=== PATIENT | female | born 1970 | race Caucasian/White ===

== ENCOUNTER 2017-09-19 15:21 | Emergency (ER) | payer OTHER ==
--- NOTE | 2017-09-19 15:31 | ER Report ---
History and Physical Time Seen By MD: 15:31 HPI/ROS CHIEF COMPLAINT: Traumatic fall HISTORY OF PRESENT ILLNESS: This is a 47-year-old female who presents to the emergency department, by POV for age mannitol downstairs patient states that about one hour prior to arrival she was moving into a new house spelled down some stairs approximately 5 but she is unsure. Patient's unsure if she had a positive LOC. Patient does have some C-spine tenderness. Patient is complaining of left arm, left lower leg right lower leg pain. Patient denies shortness of breath or chest pain. Denies abdominal pain. Denies loss of bowel or bladder. Patient has multiple abrasions to the lower extremities, no obvious deformities noted at this time. No recent illnesses or fevers or chills. REVIEW OF SYSTEMS: Constitutional: No fever, no chills. Eyes: No discharge. ENT: No sore throat. Cardiovascular: No chest pain, no palpitations. Respiratory: No cough, no shortness of breath. Gastrointestinal: No abdominal pain, no vomiting. Genitourinary: No hematuria. Musculoskeletal: As above. Skin: As above. Neurological: As above. Allergies: Coded Allergies: Sulfa (Sulfonamide Antibiotics) (Verified Allergy, Unknown, 09/19/17) Home Meds Active Scripts Cyclobenzaprine Hcl (CYCLOBENZAPRINE HCL) 10 Mg Tablet, 5-10 MG PO TID Y for MUSCLE SPASMS, #9 TAB 0 Refills Prov:SINDY FLORES Nayely RETAIL ASSISTANT STORE MANAGER-BC 09/19/17 Reported Medications Trazodone Hcl (TRAZODONE HCL) 100 Mg Tablet, 50 MG PO TID, TAB 09/19/17 Lamotrigine (LAMOTRIGINE) 25 Mg Tab.er.24, 25 MG PO 09/19/17 Prazosin Hcl (PRAZOSIN HCL) 2 Mg Capsule, 2 MG PO, CAPSULE 09/19/17 Fluoxetine Hcl (PROZAC) 20 Mg Capsule, 20 MG PO QDAY, CAPSULE 09/19/17 Montelukast Sodium (SINGULAIR) 10 Mg Tablet, 1 TAB PO QDAY, TAB 09/19/17 Omeprazole (OMEPRAZOLE) 20 Mg Capsule.dr, 1 CAP PO BID, CAP 09/19/17 Past Medical/Surgical History The patient has a past medical and surgical history of pseudotumor cerebri, reflex sympathetic dystrophy, gastric sleeve, tubal ligation. Reviewed Nurses Notes: Yes Constitutional Vital Sign - Last 24 Hours 09/19/17 09/19/17 09/19/17 09/19/17 15:32 15:36 15:36 15:51 Temp 99.0 Pulse 80 79 76 Resp 18 B/P (MAP) 196/122 (146) 196/122 Pulse Ox 97 97 99 O2 Delivery Room Air 09/19/17 09/19/17 09/19/17 09/19/17 16:06 16:21 16:36 16:51 Pulse 74 72 80 68 Pulse Ox 100 98 94 99 09/19/17 09/19/17 09/19/17 09/19/17 16:58 17:00 17:06 17:15 Pulse 63 B/P (MAP) 123/91 (102) 136/84 (101) ???/??? (4765) Pulse Ox 100 09/19/17 09/19/17 09/19/17 09/19/17 17:20 17:35 17:45 17:50 Pulse ??? 59 67 B/P (MAP) ???/??? (1473) Pulse Ox 96 98 09/19/17 09/19/17 09/19/17 09/19/17 18:00 18:05 18:15 18:20 Pulse 70 64 B/P (MAP) ???/??? (1665) ???/??? (1665) Pulse Ox 97 94 09/19/17 09/19/17 09/19/17 09/19/17 18:24 18:35 18:45 18:50 Pulse 65 ??? B/P (MAP) 142/74 (96) ???/??? (1665) Pulse Ox 95 09/19/17 09/19/17 09/19/17 09/19/17 19:00 19:05 19:15 19:20 Pulse 62 62 B/P (MAP) ???/??? (1665) ???/??? (1665) Pulse Ox 93 96 09/19/17 09/19/17 09/19/17 09/19/17 19:35 19:50 19:52 19:57 Pulse 64 59 B/P (MAP) 144/83 (103) 144/82 (102) Pulse Ox 95 94 09/19/17 09/19/17 09/19/17 09/19/17 20:00 20:05 20:15 20:20 Pulse ? B/P (MAP) 145/74 (97) ???/??? (1665) Intake and Output 09/19/17 09/19/17 09/20/17 14:59 22:59 06:59 Intake Total 900 ml Balance 900 ml Physical Exam General Appearance: The patient is alert, has no immediate need for airway protection and no signs of toxicity, very anxious, moaning in pain. Eyes: Pupils equal and round no pallor or injection. ENT, Mouth: Mucous membranes are moist. Respiratory: There are no retractions, lungs are clear to auscultation. Cardiovascular: Regular rate and rhythm, no murmurs, clicks or rubs. Gastrointestinal: Abdomen is soft and non tender, no masses, bowel sounds normal. Neurological: Alert and oriented 4. Moving all extremities. Following all commands. No focal neuro deficits. Skin: Warm and dry, no rashes. Abrasions noted to the left knee, left anterior lower leg, right knee and right anterior lower leg. Contusion to the left elbow. Musculoskeletal: Neck is supple, mild tenderness to the cervical spine. No crepitus or obvious deformities. Extremities pain to the left shoulder, humerus, elbow and forearm, no deformities or crepitus identified. Pain to the left tib-fib with abrasions noted. Pain to the right knee, right tib-fib and right ankle abrasions to the right knee right tib-fib. DIFFERENTIAL DIAGNOSIS: After history and physical exam differential diagnosis was considered for multiple fractures, pelvic fracture, left humerus fracture, multiple contusions, abrasions and ankle fracture. Subarachnoid bleed subdural bleed and cervical spine injury. Medical Decision Making Data Points Result Diagram: 09/19/17 1650 09/19/17 1650 Laboratory Hematology Test 09/19/17 16:50 Red Blood Count 4.90 M/uL (4.17-5.56) Mean Corpuscular Volume 98.3 fL (80.0-96.0) Mean Corpuscular Hemoglobin 33.9 pg (26.0-33.0) Mean Corpuscular Hemoglobin Concent 34.5 g/dL (32.0-36.0) Red Cell Distribution Width 12.8 % (11.5-14.5) Mean Platelet Volume 8.3 fL (7.2-11.1) Neutrophils (%) (Auto) 78.7 % (39.4-72.5) Lymphocytes (%) (Auto) 15.1 % (17.6-49.6) Monocytes (%) (Auto) 5.8 % (4.1-12.4) Eosinophils (%) (Auto) 0.2 % (0.4-6.7) Basophils (%) (Auto) 0.2 % (0.3-1.4) Nucleated RBC Relative Count (auto) 0.0 /100WBC Neutrophils # (Auto) 7.9 K/uL (2.0-7.4) Lymphocytes # (Auto) 1.5 K/uL (1.3-3.6) Monocytes # (Auto) 0.6 K/uL (0.3-1.0) Eosinophils # (Auto) 0.0 K/uL (0.0-0.5) Basophils # (Auto) 0.0 K/uL (0.0-0.1) Nucleated RBC Absolute Count (auto) 0.00 K/uL Sodium Level 139 mmol/L (137-145) Potassium Level 4.0 mmol/L (3.5-5.0) Chloride Level 104 mmol/L (98-107) Carbon Dioxide Level 26 mmol/L (22-31) Blood Urea Nitrogen 10 mg/dl (7-18) Creatinine 0.70 mg/dl (0.52-1.04) Glomerular Filtration Rate Calc > 60.0 Random Glucose 98 mg/dl (75-110) Calcium Level 9.0 mg/dl (8.4-10.2) Total Bilirubin 0.7 mg/dl (0.2-1.3) Aspartate Amino Transf (AST/SGOT) 22 U/L (0-35) Alanine Aminotransferase (ALT/SGPT) 18 U/L (0-56) Alkaline Phosphatase 72 U/L (0-126) Total Protein 7.4 g/dl (6.3-8.2) Albumin 4.1 g/dl (3.5-5.0) Chemistry Test 09/19/17 16:50 White Blood Count 10.0 k/uL (4.5-11.0) Red Blood Count 4.90 M/uL (4.17-5.56) Hemoglobin 16.6 g/dL (12.0-16.0) Hematocrit 48.2 % (34.0-47.0) Mean Corpuscular Volume 98.3 fL (80.0-96.0) Mean Corpuscular Hemoglobin 33.9 pg (26.0-33.0) Mean Corpuscular Hemoglobin Concent 34.5 g/dL (32.0-36.0) Red Cell Distribution Width 12.8 % (11.5-14.5) Platelet Count 317 K/uL (150-450) Mean Platelet Volume 8.3 fL (7.2-11.1) Neutrophils (%) (Auto) 78.7 % (39.4-72.5) Lymphocytes (%) (Auto) 15.1 % (17.6-49.6) Monocytes (%) (Auto) 5.8 % (4.1-12.4) Eosinophils (%) (Auto) 0.2 % (0.4-6.7) Basophils (%) (Auto) 0.2 % (0.3-1.4) Nucleated RBC Relative Count (auto) 0.0 /100WBC Neutrophils # (Auto) 7.9 K/uL (2.0-7.4) Lymphocytes # (Auto) 1.5 K/uL (1.3-3.6) Monocytes # (Auto) 0.6 K/uL (0.3-1.0) Eosinophils # (Auto) 0.0 K/uL (0.0-0.5) Basophils # (Auto) 0.0 K/uL (0.0-0.1) Nucleated RBC Absolute Count (auto) 0.00 K/uL Glomerular Filtration Rate Calc > 60.0 Calcium Level 9.0 mg/dl (8.4-10.2) Total Bilirubin 0.7 mg/dl (0.2-1.3) Aspartate Amino Transf (AST/SGOT) 22 U/L (0-35) Alanine Aminotransferase (ALT/SGPT) 18 U/L (0-56) Alkaline Phosphatase 72 U/L (0-126) Total Protein 7.4 g/dl (6.3-8.2) Albumin 4.1 g/dl (3.5-5.0) EKG/Imaging Imaging FINDINGS: Three views right ankle Osseous structures: Intact without evidence of fracture . Joints: normal . Soft tissues: normal . IMPRESSION: Negative exam. Report Dictated By: Cooper Kendall MD at 09/19/2017 5:21 PM Report E-Signed By: Cooper Kendall MD at 09/19/2017 5:23 PM Alignment: Cervical spine is aligned. No evidence of subluxation. Vertebral bodies: In the inferior anterior C1 ring there is a linear lucency which can be seen axial image 37. It does not extend through the bone and superiorly the ring is intact. It also appears to have sclerotic margins I believe this represents a nutrient foramen or less likely old injury. There are no acute fractures through the cervical spine. Discs: There is disc space narrowing and endplate reactive changes seen at C5- 6. There is also sclerosis in the right C5 vertebrae measuring approximately 8 mm diameter which extends to the disc. This can be seen axial images 91-96. This likely represents reactive changes due to the disc disease. Bone island also possible. Blastic metastasis should only be considered if patient has a history of breast cancer. Para-vertebral soft tissues: negative Visualized lung / mediastinum: Visualized lung parenchyma normal. No evidence of pneumothorax. IMPRESSION: Negative for acute trauma C5-6 degenerative disc disease Small sclerotic lesion C6 vertebral body likely benign. However, see above discussion. Report Dictated By: Cooper Kendall MD at 09/19/2017 5:55 PM Report E-Signed By: Cooper Kendall MD at 09/19/2017 6:01 PM WSN:[facility] Portable chest, one view. HISTORY: Fell down stairs. COMPARISON: None. A metal snap and other objects project on the upper chest. The heart size is normal. The mediastinum is upper limits of normal in width. Pulmonary vessels are mildly engorged, accentuated by a suboptimal inspiration. Mild bronchial thickening is present bilaterally. Vague densities project on the upper chest consistent with rib cartilage calcifications. The pleural surfaces are otherwise unremarkable. No pneumothorax. Mild degenerative changes are present in the spine. Metal clips project on the right upper abdomen. IMPRESSION: Mild bronchial thickening. Low lung volumes. Otherwise no evidence of acute cardiopulmonary disease. Report Dictated By: Pedro Horn MD at 09/19/2017 5:03 PM Report E-Signed By: Pedro Horn MD at 09/19/2017 5:05 PM WSN:[id number] FINDINGS: Three views left elbow Osseous structures: Intact without evidence of fracture . Joints: Elbow joint normal. No evidence of joint effusion. Soft tissues: normal . IMPRESSION: Negative exam. Report Dictated By: Cooper Kendall MD at 09/19/2017 5:39 PM Report E-Signed By: Cooper Kendall MD at 09/19/2017 5:40 PM WSN:AMICIVN FOREARM LEFT Given history: trauma, fall down stairs COMPARISON STUDIES: NONE FINDINGS: Two view left forearm Osseous structures: Intact without evidence of fracture . Joints: normal . Soft tissues: normal . IMPRESSION: Negative exam. Report Dictated By: Cooper Kendall MD at 09/19/2017 5:35 PM Report E-Signed By: Cooper Kendall MD at 09/19/2017 5:37 PM WSN:AMICIVN COMPARISON STUDIES: CT cervical spine same date FINDINGS: Ventricles / sulci / fissures: Negative. Masses / hemorrhage / midline shift: Negative. Intra-axial findings: Normal. Extra-axial fluid collections: Negative. Intracranial vasculature and dural sinuses: Negative. Skull base / calvarium: No evidence of skull fractures. See accompanying CT cervical spine films regarding the small linear lucency in the anterior C1 ring. Scalp: negative Visualized mastoid air cells / paranasal sinuses: Well aerated. Orbits: Negative IMPRESSION: Negative head CT Report Dictated By: Cooper Kendall MD at 09/19/2017 5:50 PM Report E-Signed By: Cooper Kendall MD at 09/19/2017 5:55 PM WSN:AMICIVN HUMERUS LEFT Given history: trauma, fall down stairs COMPARISON STUDIES: Left elbow radiographs FINDINGS: Two view left humerus. Osseous structures: Distal left humerus is clipped from the [id number] in the AP projection. However, this area of the humerus is captured in the comparison elbow radiographs. The left humerus is intact without evidence of fracture. Elbow joint was unremarkable in the comparison study and left glenohumeral joint appears grossly normal. IMPRESSION: Negative exam. Report Dictated By: Cooper Kendall MD at 09/19/2017 5:43 PM Report E-Signed By: Cooper Kendall MD at 09/19/2017 5:46 PM WSN:[facility]IVHlolis KNEE 4 VIEW RIGHT HISTORY: trauma, fall down stairs Additional history: None COMPARISON: None. FINDINGS: Four view right knee. There is a transverse sclerotic lesion across the proximal tibial metaphysis which has an appearance most suggestive of a physeal scar rather than fracture. The knee joint is unremarkable without appreciable degenerative changes. No evidence of joint effusion. IMPRESSION: Physeal scar proximal tibial metaphysis strongly favored. This is unlikely to represent an impaction fracture. Otherwise negative Report Dictated By: Cooper Kendall MD at 09/19/2017 5:28 PM Report E-Signed By: Cooper Kendall MD at 09/19/2017 5:33 PM WSN:[facility]IVHollis PELVIS HISTORY: trauma, fall down stairs Additional history: None COMPARISON: None. FINDINGS: Single view of the pelvic girdle. There is a vertically oriented linear density in the left iliac wing located just lateral to the SI joint. This might represent an iliac fracture although I do not see a break in the cortex. Pelvic girdle otherwise unremarkable. IMPRESSION: Possible left iliac fracture. Recommend follow-up CT for further evaluation. Report Dictated By: Cooper Kendall MD at 09/19/2017 5:17 PM Report E-Signed By: Cooper Kendall MD at 09/19/2017 5:19 PM WSN:[facility] HISTORY: trauma, fall down stairs Additional history: None COMPARISON: None. FINDINGS: Two view left shoulder. Osseous structures left shoulder girdle appear intact. There is no evidence of dislocation. IMPRESSION: Normal study. Report Dictated By: Cooper Kendall MD at 09/19/2017 5:47 PM Report E-Signed By: Cooper Kendall MD at 09/19/2017 5:49 PM WSN:[facility]IVHollis TIBIA FIBULA LEFT Given history: trauma, fall down stairs COMPARISON STUDIES: NONE FINDINGS: Osseous structures: Tibia and fibula are intact. Joints: Left knee joint unremarkable in appearance. In the left ankle there is a subtle lucency seen in the medial corner of the talar dome. This may represent an overlying mock line but fracture cannot be excluded. Soft tissues: normal . IMPRESSION: Nondisplaced corner fracture medial talar dome unlikely although cannot BE excluded. If patient has left ankle pain recommend follow-up three view left ankle radiographs. Otherwise negative. Report Dictated By: Cooper Kendall MD at 09/19/2017 5:23 PM Report E-Signed By: Cooper Kendall MD at 09/19/2017 5:25 PM WSN:[facility] TIBIA FIBULA RIGHT Given history: trauma, fall down stairs COMPARISON STUDIES: NONE FINDINGS: Two view right lower leg Osseous structures: Intact without evidence of fracture . Joints: normal . Soft tissues: normal . IMPRESSION: Negative exam. Report Dictated By: Cooper Kendall MD at 09/19/2017 5:25 PM Report E-Signed By: oCoper Kendall MD at 09/19/2017 5:28 PM WSN:[facility] ED Course/Re-evaluation Clinical Indication for ER IV: Hydration, IV Access ED Course The patient was admitted to room. Astra physical obtained. Differential diagnoses were considered. An IV was started. Prior to the IV the patient was given 0.5 mg IM Dilaudid, one 4 mg sublingual Zofran. After the IV was started she was given 50 g IV fentanyl 2. 1 L normal saline bolus. Patient had x-rays of the left shoulder, left humerus, left elbow and forearm. Left tib-fib, right tib-fib and right knee right ankle, pelvis and chest x-ray. The left tib-fib x- ray which showing a possible fracture malleolus, I did review this with the patient suggested a follow-up x-ray dedicated to the left ankle she refused. Also was a question is whether or not she had a left iliac crest fracture, a CT of the abdomen and pelvis was obtained. The CT of the abdomen and pelvis was negative for any acute findings however there was an incidental finding of a possible cyst on the pancreas. I reviewed these results with the patient. Did give her an additional 30 mg IV Norflex with 2 Flexeril to go home with. Patient was also sent home with a prescription for Flexeril. I did advise the patient to be very careful with Flexeril as it can cause lightheadedness and drowsiness therefore be very cautious while using it. The patient was instructed to follow-up with and establish a primary care provider here in town she is new to [place] for a follow-up on the possible pancreatic cyst. Patient had no other questions or concerns at this time and was discharged home. 09/19/2017 6:55:27 pm I did review the lab studies and the radiology results with the patient. I did tell her that there is a question of a left malleolar injury concerning for fracture and suggested a dedicated x-ray of the left ankle the patient refused the left ankle x-ray. I also told her that there was a questionable left pelvic fracture, and the radiologist suggested a CT, patient is in agreement with the CAT scan. Decision to Disposition Date: Sep 19, 2017 Decision to Disposition Time: 19:55 Depart Departure Latest Vital Signs Vital Signs Date Time Temp Pulse Resp B/P (MAP) Pulse Ox O2 Delivery O2 Flow Rate FiO2 09/19/17 20:20 ??? 09/19/17 20:15 ???/??? (1665) 09/19/17 19:50 94 09/19/17 15:36 99.0 18 Room Air Impression: Primary Impression: Fall (on) (from) other stairs and steps, initial encounter Additional Impression: Contusion, multiple sites Condition: Improved Disposition: HOME OR SELF-CARE New Scripts Cyclobenzaprine Hcl (CYCLOBENZAPRINE HCL) 10 Mg Tablet 5-10 MG PO TID Y for MUSCLE SPASMS, #9 TAB 0 Refills Prov: SINDY FLORES-XAVIER 09/19/17 Patient Instructions: Contusion in Adults (ED), Fall Prevention (ED) Additional Instructions: Be sure to establish with a primary care provider here locally, for follow-up on the possible pancreatic cyst, the radiologist suggested a repeat CT scan in several months or an MRI. Be sure to follow-up with your neurologist in [place] as scheduled. Drink plenty of water especially if this elevation. Try to get as much rest as possible. Take the Flexeril as directed be very cautious when taking this medication as it can cause drowsiness and unsteadiness. Return to the emergency department for any other concerns or worsening symptoms. If you do not take the Flexeril he can take ibuprofen or Tylenol for ear aches and pains. I would anticipate worsening pain and discomfort over the next 2-3 days. Problem Qualifiers SINDY FLORESP-BC Sep 19, 2017 15:31
[2017-09-19] MEDS ORDERED: NS(*) 0.9% 1000 ML BAG 1,000 ML IV ONE (15:40)
[2017-09-19] MEDS ORDERED: HYDROmorphone* 1 MG/ML 1 MG/ML ML IVP ONE (15:40)
[2017-09-19] MEDS ORDERED: ONDANSETRON 4 MG/2 ML VIAL IVP ONE (15:40)
[2017-09-19] MEDS ORDERED: HYDROmorphone* 1 MG/ML 1 MG/ML ML IM ONE (16:10)
[2017-09-19] MEDS ORDERED: DIPHTH/TETANUS/ACEL. PERTUSSIS IM ONLY ONE (16:15)
[2017-09-19] MEDS ORDERED: ONDANSETRON 4 MG ODT TABDP SL ONE (16:20)
[2017-09-19] MEDS ORDERED: TRAZ100T31 PO (16:59)
[2017-09-19] MEDS ORDERED: LAMO25TA4 PO (16:59)
[2017-09-19] MEDS ORDERED: PRAZ2CAP26 PO (16:59)
[2017-09-19] MEDS ORDERED: MONT10TA PO (16:59)
[2017-09-19] MEDS ORDERED: OMEP-125 PO (16:59)
[2017-09-19] MEDS ORDERED: FLUO-202 PO (16:59)
[2017-09-19] MEDS ORDERED: fentaNYL CITR 100 MCG/2 ML AMP IVP ONE ×2 (17:05→18:15)
--- NOTE | 2017-09-19 17:09 | RADIOLOGY IMAGING REPORT ---
FACILITY: [facility] - [place] PATIENT NAME: Yara Landeros : 1970 MR: [id number] V: [id number] EXAM DATE: ORDERING PHYSICIAN: SINDY FLORES TECHNOLOGIST: Location: [facility] [place] Patient: Yara Landeros : 1970 Visit/Account:[id number] Date of Sevice: 09/19/2017 Portable chest, one view. HISTORY: Fell down stairs. COMPARISON: None. A metal snap and other objects project on the upper chest. The heart size is normal. The mediastinum is upper limits of normal in width. Pulmonary vessels are mildly engorged, accentuated by a suboptima l inspiration. Mild bronchial thickening is present bilaterally. Vague densities project on the upper chest consistent with rib cartilage calcifications. The pleural surfaces are otherwise unremarkable. No pneumothorax. Mild degenerative changes are present in the spine. Metal clips project on the righ t upper abdomen. IMPRESSION: Mild bronchial thickening. Low lung volumes. Otherwise no evidence of acute cardiopulmonary disease. Report Dictated By: Pedro Horn MD at 09/19/2017 5:03 PM Report E-Signed By: Pedro Horn MD at 09/19/2017 5:05 PM WSN:[id number]
[2017-09-19 17:18] LABS: PLATELET COUNT, AUTOMATED 317 K/uL (150-450)
--- NOTE | 2017-09-19 17:23 | RADIOLOGY IMAGING REPORT ---
FACILITY: [facility] - [place], [place] PATIENT NAME: Yara Landeros : 1970 MR: [id number] V: [id number] EXAM DATE: ORDERING PHYSICIAN: SINDY FLORES TECHNOLOGIST: Location: [facility] Patient: Yara Landeros : 1970 Visit/Account:[id number] Date of Sevice: 09/19/2017 PELVIS HISTORY: trauma, fall down stairs Additional history: None COMPARISON: None. FINDINGS: Single view of the pelvic girdle. There is a vertically oriented linear density in the left iliac wi ng located just lateral to the SI joint. This might represent an iliac fracture although I do not se e a break in the cortex. Pelvic girdle otherwise unremarkable. IMPRESSION: Possible left iliac fracture. Recommend follow-up CT for further evaluation. Report Dictated By: Cooper Kendall MD at 09/19/2017 5:17 PM Report E-Signed By: Cooper Kendall MD at 09/19/2017 5:19 PM WSN:[email or web address]
--- NOTE | 2017-09-19 17:26 | RADIOLOGY IMAGING REPORT ---
FACILITY: [facility] PATIENT NAME: Yara Landeros : 1970 MR: [id number] V: [id number] EXAM DATE: ORDERING PHYSICIAN: SINDY FLORES TECHNOLOGIST: Location: [facility] - [place] Patient: Yara Landeros : 1970 Visit/Account:[id number] Date of Sevice: 09/19/2017 ANKLE 3 VIEW MIN RIGHT Given history: trauma, fall down stairs COMPARISON STUDIES: NONE FINDINGS: Three views right ankle Osseous structures: Intact without evidence of fracture . Joints: normal . Soft tissues: normal . IMPRESSION: Negative exam. Report Dictated By: Cooper Kendall MD at 09/19/2017 5:21 PM Report E-Signed By: Cooper Kendall MD at 09/19/2017 5:23 PM WSN:[email or web address]
--- NOTE | 2017-09-19 17:28 | RADIOLOGY IMAGING REPORT ---
FACILITY: [facility] PATIENT NAME: Yara Landeros : 1970 MR: [id number] V: [id number] EXAM DATE: ORDERING PHYSICIAN: SINDY FLORES TECHNOLOGIST: Location: [facility] Patient: Yara Landeros : 1970 Visit/Account:[id number] Date of Sevice: 09/19/2017 TIBIA FIBULA LEFT Given history: trauma, fall down stairs COMPARISON STUDIES: NONE FINDINGS: Osseous structures: Tibia and fibula are intact. Joints: Left knee joint unremarkable in appearance. In the left ankle there is a subtle lucency se en in the medial corner of the talar dome. This may represent an overlying mock line but fracture ca nnot be excluded. Soft tissues: normal . IMPRESSION: Nondisplaced corner fracture medial talar dome unlikely although cannot BE excluded. If patient louis s left ankle pain recommend follow-up three view left ankle radiographs. Otherwise negative. Report Dictated By: Cooper Kendall MD at 09/19/2017 5:23 PM Report E-Signed By: Cooper Kendall MD at 09/19/2017 5:25 PM WSN:AMICIVN
--- NOTE | 2017-09-19 17:31 | RADIOLOGY IMAGING REPORT ---
FACILITY: [facility] PATIENT NAME: Yara Landeros : 1970 MR: [id number] V: [id number] EXAM DATE: ORDERING PHYSICIAN: SINDY FLORES TECHNOLOGIST: Location: [facility] - [place] Patient: Yara Landeros : 1970 Visit/Account:[id number] Date of Sevice: 09/19/2017 TIBIA FIBULA RIGHT Given history: trauma, fall down stairs COMPARISON STUDIES: NONE FINDINGS: Two view right lower leg Osseous structures: Intact without evidence of fracture . Joints: normal . Soft tissues: normal . IMPRESSION: Negative exam. Report Dictated By: Cooper Kendall MD at 09/19/2017 5:25 PM Report E-Signed By: Cooper Kendall MD at 09/19/2017 5:28 PM WSN:[email or web address]
--- NOTE | 2017-09-19 17:35 | RADIOLOGY IMAGING REPORT ---
FAC[place] [facility] [place]IENT NAME: Yara Landeros : 1970 MR: [id number] V: [id number] EXAM DATE: ORDERING PHYSICIAN: SINDY FLORES TECHNOLOGIST: Location: [facility] - [place] Patient: Yara Landeros : 1970 Visit/Account:[id number] Date of Sevice: 09/19/2017 KNEE 4 VIEW RIGHT HISTORY: trauma, fall down stairs Additional history: None COMPARISON: None. FINDINGS: Four view right knee. There is a transverse sclerotic lesion across the proximal tibial metaphysis which has an appearance most suggestive of a physeal scar rather than fracture. The knee joint is unremarkable without appre ciable degenerative changes. No evidence of joint effusion. IMPRESSION: Physeal scar proximal tibial metaphysis strongly favored. This is unlikely to represent an impaction fracture. Otherwise negative Report Dictated By: Cooper Kendall MD at 09/19/2017 5:28 PM Report E-Signed By: Cooper Kendall MD at 09/19/2017 5:33 PM WSN:[facility]
--- NOTE | 2017-09-19 17:41 | RADIOLOGY IMAGING REPORT ---
FACILITY: [facility] PATIENT NAME: Yara Landeros : 1970 MR: [id number] V: [id number] EXAM DATE: ORDERING PHYSICIAN: SINDY FLORES TECHNOLOGIST: [place] [facility] [place] Yara L[place]os : 1970 Visit/Account:[id number] Date of Sevice: 09/19/2017 FOREARM LEFT Given history: trauma, fall down stairs COMPARISON STUDIES: NONE FINDINGS: Two view left forearm Osseous structures: Intact without evidence of fracture . Joints: normal . Soft tissues: normal . IMPRESSION: Negative exam. Report Dictated By: Cooper Kendall MD at 09/19/2017 5:35 PM Report E-Signed By: Cooper Kendall MD at 09/19/2017 5:37 PM WSN:[email or web address]
--- NOTE | 2017-09-19 17:43 | RADIOLOGY IMAGING REPORT ---
FACILITY: [facility] [place] PATIENT NAME: Yara Landeros : 1970 MR: [id number] V: [id number] EXAM DATE: ORDERING PHYSICIAN: SINDY FLORES TECHNOLOGIST: Location: [facility] [place] Patient: aYra Landeros : 1970 Visit/Account:[id number] Date of Sevice: 09/19/2017 ELBOW 3 VIEW LEFT Given history: trauma, fall down stairs COMPARISON STUDIES: NONE FINDINGS: Three views left elbow Osseous structures: Intact without evidence of fracture . Joints: Elbow joint normal. No evidence of joint effusion. Soft tissues: normal . IMPRESSION: Negative exam. Report Dictated By: Cooper Kendall MD at 09/19/2017 5:39 PM Report E-Signed By: Cooper Kendall MD at 09/19/2017 5:40 PM WSN:[email or web address]
--- NOTE | 2017-09-19 17:51 | RADIOLOGY IMAGING REPORT ---
FACILITY: [facility] [place] PATIENT NAME: Yara Landeros : 1970 MR: [id number] V: [id number] EXAM DATE: ORDERING PHYSICIAN: SINDY FLORES TECHNOLOGIST: Location: [facility] Patient: Yara Landeros : 1970 Visit/Account:[id number] Date of Sevice: 09/19/2017 HUMERUS LEFT Given history: trauma, fall down stairs COMPARISON STUDIES: Left elbow radiographs FINDINGS: Two view left humerus. Osseous structures: Distal left humerus is clipped from the [id number] in the AP projection. Madrigal angelita, this area of the humerus is captured in the comparison elbow radiographs. The left humerus is intact without evidence of fracture. Elbow joint was unremarkable in the compari son study and left glenohumeral joint appears grossly normal. IMPRESSION: Negative exam. Report Dictated By: Cooper Kendall MD at 09/19/2017 5:43 PM Report E-Signed By: Cooper Kendall MD at 09/19/2017 5:46 PM WSN:[email or web address]
--- NOTE | 2017-09-19 17:53 | RADIOLOGY IMAGING REPORT ---
[place] [facility] [place] NAME: Yara Landeros : 1970 MR: [id number] V: [id number] EXAM DATE: ORDERING PHYSICIAN: SINDY FLORES TECHNOLOGIST: Location: [facility] Patient: Yraa Landeros : 1970 Visit/Account:[id number] Date of Sevice: 09/19/2017 SHOULDER MIN 2 VIEWS LEFT HISTORY: trauma, fall down stairs Additional history: None COMPARISON: None. FINDINGS: Two view left shoulder. Osseous structures left shoulder girdle appear intact. There is no evidence of dislocation. IMPRESSION: Normal study. Report Dictated By: Cooper Kendall MD at 09/19/2017 5:47 PM Report E-Signed By: Cooper Kendall MD at 09/19/2017 5:49 PM WSN:[email or web address]
--- NOTE | 2017-09-19 17:58 | RADIOLOGY IMAGING REPORT ---
FACILITY: [facility] PATIENT NAME: Yara Landeros : 1970 MR: [id number] V: [id number] EXAM DATE: ORDERING PHYSICIAN: SINDY FLORES TECHN[place] [facility] [place] : 1970 Visit/Account:[id number] Date of Sevice: 09/19/2017 HEAD W/O CONTRAST History: fall down stairs, unk loc, shoulder, legs, arm pain TECHNIQUE: Contiguous angled axial images were obtained from the vertex through the base of the sku ll without intravenous contrast. One of the following dose optimization techniques was utilized in th e performance of this exam: Automated exposure control; adjustment of the mA and/or kV according to t he patient's size; or use of an iterative reconstruction technique. Specific details can be referen charly in the facility's radiology CT exam operational policy. COMPARISON STUDIES: CT cervical spine same date FINDINGS: Ventricles / sulci / fissures: Negative. Masses / hemorrhage / midline shift: Negative. Intra-axial findings: Normal. Extra-axial fluid collections: Negative. Intracranial vasculature and dural sinuses: Negative. Skull base / calvarium: No evidence of skull fractures. See accompanying CT cervical spine films reg arding the small linear lucency in the anterior C1 ring. Scalp: negative Visualized mastoid air cells / paranasal sinuses: Well aerated. Orbits: Negative IMPRESSION: Negative head CT Report Dictated By: Cooper Kendall MD at 09/19/2017 5:50 PM Report E-Signed By: Cooper Kendall MD at 09/19/2017 5:55 PM WSN:[email or web address]
--- NOTE | 2017-09-19 18:04 | RADIOLOGY IMAGING REPORT ---
FACILITY: [facility] PATIENT NAME: Yara Landeros : 1970 MR: [id number] V: [id number] EXAM DATE: ORDERING PHYSICIAN: SINDY FLORES TECHNOLOGIST: Location: [facility] Patient: Yara Landeros : 1970 Visit/Account:[id number] Date of Sevice: 09/19/2017 C-SPINE W/O CONTRAST History: fall down stairs, unk loc, shoulder, legs, arm pain COMPARISON STUDIES: none TECHNIQUE: Contiguous axial images were obtained from the skull base through the upper thoracic spin e without IV contrast administration. Coronal and sagittal reformatted images were obtained from the axial source data. One of the following dose optimization techniques was utilized in the performance of this exam: Automated exposure control; adjustment of the mA and/or kV according to the patient's s ize; or use of an iterative reconstruction technique. Specific details can be referenced in the [facility] exam operational policy. FINDINGS: Alignment: Cervical spine is aligned. No evidence of subluxation. Vertebral bodies: In the inferior anterior C1 ring there is a linear lucency which can be seen axial image 37. It does not extend through the bone and superiorly the ring is intact. It also appears t o have sclerotic margins I believe this represents a nutrient foramen or less likely old injury. The re are no acute fractures through the cervical spine. Discs: There is disc space narrowing and endplate reactive changes seen at C5-6. There is also scler osis in the right C5 vertebrae measuring approximately 8 mm diameter which extends to the disc. This can be seen axial images 91-96. This likely represents reactive changes due to the disc disease. B one island also possible. Blastic metastasis should only be considered if patient has a history of b reast cancer. Para-vertebral soft tissues: negative Visualized lung / mediastinum: Visualized lung parenchyma normal. No evidence of pneumothorax. IMPRESSION: Negative for acute trauma C5-6 degenerative disc disease Small sclerotic lesion C6 vertebral body likely benign. However, see above discussion. Report Dictated By: Cooper Kendall MD at 09/19/2017 5:55 PM Report E-Signed By: Cooper Kendall MD at 09/19/2017 6:01 PM WSN:CLAIR
[2017-09-19] MEDS ORDERED: IOPAMIDOL 76% 100 ML INFUS BTL 100 ML ONE (18:24)
--- NOTE | 2017-09-19 19:33 | RADIOLOGY IMAGING REPORT ---
FACILITY: [facility] PATIENT NAME: Yara Landeros : 1970 MR: [id number] V: [id number] EXAM DATE: ORDERING PHYSICIAN: SINDY FLORES TECHNOLOGIST: Location: [facility] [place] Patient: Yara Landeros : 1970 Visit/Account:[id number] Date of Sevice: 09/19/2017 CT abdomen and pelvis with IV contrast Indication: Left-sided pain after fall. Question of a fracture to the left pelvis. Comparison: Pelvis x-ray done earlier in the day.. Technique: Axial CT images were obtained through the abdomen and pelvis during injection of nonioni c iodinated intravenous contrast. Reformatted coronal and sagittal images were also obtained. One of the following dose optimization techniques was utilized in the performance of this exam: Autom ated exposure control; adjustment of the mA and/or kV according to the patient's size; or use of an i terative reconstruction technique. Specific details can be referenced in the facility's radiology C T exam operational policy. Contrast: 75 ml of Isovue-370 IV contrast. Findings: Lower lung sivlestre: Limited views lower lung field are unremarkable. Liver: No focal parenchymal abnormality of the liver. Biliary: Status post cholecystectomy. Common bile duct is mildly dilated up to 1 cm. The duct tapers normally to the pancreatic head and no intraductal abnormality is identified. Pancreas: The head/uncinate process of the pancreas does show a ill-defined 6 mm hypodensity. No othe r focal abnormality or ductal dilatation. Spleen: Normal appearance. Adrenal glands: Unremarkable. Kidneys / retroperitoneum: No evidence of nephrolithiasis or hydronephrosis. No focal abnormality. Bowel / peritoneum / mesenteries: Colon shows no focal abnormality. The appendix normal. Small bowel shows no focal abnormality or obstruction. The stomach shows postsurgical changes without sequelae. No free air, free fluid, fluid collections or areas of inflammation. There are 3 small ventral hernia s containing fat. Lymph node assessment: No pathologic adenopathy identified. Pelvic structures: Pelvic structures visualized within normal limits. The left ovary does show a 2 .3 cm cyst. Vessels: No significant atherosclerotic calcifications seen throughout a nonaneurysmal abdominal aort a and branches. Musculoskeletal / Body wall: No acute or aggressive osseous abnormality. No left iliac fracture. The plain film represent overlapping shadows. IMPRESSION: 1. No acute abnormality or indication of traumatic injury. No left iliac fracture is identified. 2. 6 mm hypodensity in the head/uncinate process of the pancreas this may represent a small cyst. The re is no other focal abnormality or ductal dilatation. Consideration to follow-up MRI of the pancreas without and with contrast to evaluate for cystic versus solid lesion. Alternatively [address] scan follow-up can reevaluate for stability. 3. Mildly dilated common bile duct. This is most likely due to the cholecystectomy. There is no intra ductal abnormality and the duct tapers normally to the pancreatic head. 4. Other chronic findings as above. Report Dictated By: Georgi Gonzalez at 09/19/2017 7:19 PM Report E-Signed By: Georgi Gonzalez at 09/19/2017 7:31 PM WSN:[id number]
[2017-09-19] MEDS ORDERED: ORPHENADRINE 60MG/2ML INJ IVP ONE (19:45)
[2017-09-19] MEDS ORDERED: CYCL10TA29 PO (19:56)
[2017-09-19] MEDS ORDERED: CYCLOBENZAPRINE HCL 10 MG TH PO ONE (20:00)
== END 2017-09-19 20:20 | disposition home or self-care (01) ==
LOC: ER 15:27
DX: S80.12XA Contusion of left lower leg, initial encounter (principal); S80.11XA Contusion of right lower leg, initial encounter; W10.9XXA Fall (on) (from) unspecified stairs and steps, initial encounter
CPT/HCPCS: 70450; 71045; 72125; 72170; 73030; 73060; 73080; 73090; 73564; 73590; 73610; 74177; 85025; 96361; 96372; 96374; 96375; 96376; 99285; A4565; J1170; J2360; J3010; J7030; L0172; Q9967; S0119; 82040; 82247; 82310; 82374; 82435; 82565; 82947; 84075; 84132; 84155; 84295; 84450; 84460; 84520

== ENCOUNTER → 2017-11-01 | Outpatient (CLI) | payer OTHER ==
[~2017-11-01] MED LIST: CYCL10TA29 PO; FLUO-202 PO; LAMO25TA4 PO; MONT10TA PO; OMEP-125 PO; PRAZ2CAP26 PO; TRAZ100T31 PO
--- NOTE | 2017-11-01 11:13 | RADIOLOGY IMAGING REPORT ---
FACILITY: [facility] [place] PATIENT NAME: Yara Landeros : 1970 MR: [id number] V: [id number] EXAM DATE: ORDERING PHYSICIAN: ANTWON DIA TECHNOLOGIST: Location: [facility] Patient: Yara Landeros : 1970 Visit/Account:[id number] Date of Sevice: 11/01/2017 Chest with lateral, 2 views. HISTORY: Preop. COMPARISON: Portable chest 09/19/2017. A 5 mm nodularity consistent with a calcified granuloma is present in the anterior lower chest. A babar cified lymph node may be present in the aortopulmonary window. The heart and mediastinum are otherwis e unremarkable. Pulmonary vessels are unremarkable. The lungs are otherwise clear. The pleural surf aces are unremarkable. No pneumothorax. Mild degenerative changes are present in the spine. Surgical clips are present in the upper abdomen. IMPRESSION: Probable old granulomatous disease. Otherwise no evidence of acute cardiopulmonary disease. Report Dictated By: Pedro Horn MD at 11/01/2017 11:06 AM Report E-Signed By: Pedro Horn MD at 11/01/2017 11:09 AM WSN:[id number]
--- NOTE | 2017-11-01 11:55 | EKG ---
[place] [facility] [place] SIMONE FRIEDMAN : [id number] MR: [id number] V: [id number] EXAM DATE: ORDERING PHYSICIAN: ANTWON DIA TECHNOLOGIST: Test Reason : PRE-OP Blood Pressure : / mmHG Vent. Rate : 071 BPM Atrial Rate : 071 BPM P-R Int : 122 ms QRS Dur : 076 ms QT Int : 412 ms P-R-T Axes : 024 038 044 degrees QTc Int : 447 ms Normal sinus rhythm Normal ECG No previous ECGs available Confirmed by ALVARO ABBOTT ([id number]) on 11/01/2017 3:20:01 PM Referred By: Confirmed By:ALVARO ABBOTT
== END ==
LOC: RAD 10:42
PROVIDERS: ATTEND Nurse Practitioner Family
DX: Z01.818 Encounter for other preprocedural examination (principal)
CPT/HCPCS: 71046; 93005

== ENCOUNTER → 2017-12-20 | Outpatient (CLI) | payer OTHER ==
--- NOTE | 2017-12-20 11:48 | RADIOLOGY IMAGING REPORT ---
FACILITY: [facility] PATIENT NAME: Yara Landeros : 1970 MR: [id number] V: [id number] EXAM DATE: ORDERING PHYSICIAN: SAVANNAH HERNANDEZ TECHNOLOGIST: Location: [facility] [place] Patient: Yara Landeros : 1970 Visit/Account:[id number] Date of Sevice: 12/20/2017 ABDOMEN PELVIS ESWL CYSTO W/O HISTORY: UTI, history of left-sided kidney stones, right-sided abdomen pain TECHNIQUE: Axial images acquired through the abdomen/pelvis. Coronal and sagittal reformatting also performed. No IV contrast administered. Dose Lowering Technique One of the following dose optimization techniques was utilized in the performance of this exam: Autom ated exposure control; adjustment of the mA and/or kV according to the patient's size; or use of an i terative reconstruction technique. Specific details can be referenced in the facility's radiology C T exam operational policy. COMPARISON: September 19, 2017 FINDINGS: Visualized lung bases: Negative. Hepatobiliary: There are postsurgical changes from a cholecystectomy that appears stable when compar ed to the prior study Spleen: Negative. Adrenals: Negative. Pancreas: Previously noted 6 mm round hypodensity in the uncinate process of the pancreas appears re latively unchanged Kidneys ureters and bladder: There is no demonstration of urolithiasis hydronephrosis or hydroureter Genitalia: Previous seen noted 2.3 cm left ovarian cyst is decreasing in size now measuring 1.6 cm i n diameter GI: There are postsurgical changes of the stomach . Also noted is a small hiatal hernia Vessels/spaces/nodes: Negative. Bones/soft tissues: There are four ventral hernias containing fat. There is now an implanted wire/e lectrode in the subcutaneous soft tissues over the upper right side of the abdomen which enters the a bdominal cavity just anterior to the liver and extends along the right lateral aspect of the abdomen and is curled within the pelvis. There are numerous surgical clips in the retroperitoneum. There ar e spondylotic changes lumbar spine Additional findings: None pertinent. IMPRESSION: No evidence of nephrolithiasis, hydronephrosis or hydroureter Previously noted six moment round hypodensity in the uncinate process of the pancreas has remained st able Postsurgical changes from a cholecystectomy and of the stomach Previously noted 2.3 cm left ovarian cyst is decreasing in size now measuring 1.6 cm Small hiatal hernia. There are four ventral hernias containing fat Report Dictated By: Nadine Lozoya MD at 12/20/2017 11:26 AM Report E-Signed By: Nadine Lozoya MD at 12/20/2017 11:43 AM WSN:[email or web address]
== END ==
LOC: CT 07:00
PROVIDERS: ATTEND Urology
DX: N83.202 Unspecified ovarian cyst, left side (principal); Z90.49 Acquired absence of other specified parts of digestive tract; K44.9 Diaphragmatic hernia without obstruction or gangrene; K43.9 Ventral hernia without obstruction or gangrene
CPT/HCPCS: 74176

== ENCOUNTER 2018-03-17 13:44 | Emergency (ER) | payer OTHER ==
[2018-03-17 13:49] VITALS: BP 177/99
--- NOTE | 2018-03-17 14:00 | ER Report ---
History and Physical Time Seen By MD: 13:53 Hx. of Stated Complaint: "CROHN'S DISEASE FLARE FOR 3 WEEKS" HPI/ROS CHIEF COMPLAINT: Abdominal pain HISTORY OF PRESENT ILLNESS: 47-year-old female patient presents to emergency room with complaint of abdominal pain. Patient states that she has had 3 weeks of this abdominal pain. She states she has a history of Crohn's disease and gets this very sharp stabbing pain in the right lower quadrant. She states that she's never had diarrhea with this but states that she does have significant amounts of pain. She denies having any fevers, however she states she does have some ch ills. Patient states she has been seen multiple times in the emergency room for this in the past. She states that she has been admitted for weeks at a time with this complaint. She is not currently taking any medication for Crohn's. REVIEW OF SYSTEMS: Respiratory: No cough, no dyspnea. Cardiovascular: No chest pain, no palpitations. Gastrointestinal: As noted above Musculoskeletal: No back pain. Allergies: Coded Allergies: Sulfa (Sulfonamide Antibiotics) (Verified Allergy, Unknown, 03/17/18) Home Meds Active Scripts Hydrocodone Bit/Acetaminophen (HYDROCODON-ACETAMINOPHEN 5-325) 1 Each Tablet, 1 EACH PO Q4-6H PRN for PAIN, #6 TAB Prov:BRIDGETT AGUIRRE [facility] 03/17/18 Prednisone (PREDNISONE) 20 Mg Tablet, 40 MG PO DAILY, #10 TAB Prov:BRIDGETT AGUIRRE [facility] 03/17/18 Cyclobenzaprine Hcl (CYCLOBENZAPRINE HCL) 10 Mg Tablet, 5-10 MG PO TID PRN for MUSCLE SPASMS, #9 TAB 0 Refills Prov:SINDY FLORES [facility] 09/19/17 Reported Medications Trazodone Hcl (TRAZODONE HCL) 100 Mg Tablet, 50 MG PO TID, TAB 09/19/17 Lamotrigine (LAMOTRIGINE) 25 Mg Tab.er.24, 25 MG PO 09/19/17 Prazosin Hcl (PRAZOSIN HCL) 2 Mg Capsule, 2 MG PO, CAPSULE 09/19/17 Fluoxetine Hcl (PROZAC) 20 Mg Capsule, 20 MG PO QDAY, CAPSULE 09/19/17 Montelukast Sodium (SINGULAIR) 10 Mg Tablet, 1 TAB PO QDAY, TAB 09/19/17 Omeprazole (OMEPRAZOLE) 20 Mg Capsule.dr, 1 CAP PO BID, CAP 09/19/17 Past Medical/Surgical History Patient has a past medical history of pseudotumor cerebri, reflux, reflex sympathetic dystrophy, depression. Patient has a surgical history of shunt, gastric sleeve, tubal ligation, uterine ablation. Reviewed Nurses Notes: Yes Hx Substance Use Disorder: No Hx Alcohol Use: No Constitutional Vital Sign - Last 24 Hours 03/17/18 13:49 Temp 99.0 Pulse 99 Resp 20 B/P (MAP) 177/99 Pulse Ox 92 O2 Delivery Room Air Physical Exam General Appearance: The patient is alert, has no immediate need for airway protection and no current signs of toxicity. Respiratory: Chest is non tender, lungs are clear to auscultation. Cardiac: regular rate and rhythm Gastrointestinal: Abdomen is soft and tender in the right lower quadrant, no masses, bowel sounds are hypoactive. Musculoskeletal: Neck: Neck is supple and non tender. Extremities have full range of motion and are non tender. Skin: No rashes or lesions. DIFFERENTIAL DIAGNOSIS: After history and physical exam differential diagnosis was considered for abdominal pain including but not limited to appendicitis, cholecystitis, gastritis and urinary tract infection. Medical Decision Making Data Points Result Diagram: 03/17/18 1354 03/17/18 1354 Laboratory Hematology Test 03/17/18 13:52 03/17/18 13:54 Urine Color Yellow Urine Clarity Slightly-cloudy Urine pH 5.0 pH (4.8-9.5) Urine Specific [place] 1.031 Urine Protein 30 mg/dL (NEGATIVE) Urine Glucose (UA) Negative mg/dL (NEGATIVE) Urine Ketones Trace mg/dL (NEGATIVE) Urine Blood Negative (NEGATIVE) Urine Nitrite Negative (NEGATIVE) Urine Bilirubin Negative (NEGATIVE) Urine Urobilinogen Negative mg/dL (0.2-1.9) Urine Leukocyte Esterase Trace (NEGATIVE) Urine RBC None /HPF (0-2/HPF) Urine WBC 5 /HPF (0-5/HPF) Urine Squamous Epithelial Cells Many /LPF (</=FEW) Urine Bacteria Few /HPF (NONE-FEW) Urine Hyaline Casts Few /LPF (NONE-FEW) Urine Mucus Few /HPF (NONE-FEW) Red Blood Count 5.25 M/uL (4.17-5.56) Mean Corpuscular Volume 97.2 fL (80.0-96.0) Mean Corpuscular Hemoglobin 33.3 pg (26.0-33.0) Mean Corpuscular Hemoglobin Concent 34.2 g/dL (32.0-36.0) Red Cell Distribution Width 12.4 % (11.5-14.5) Mean Platelet Volume 7.7 fL (7.2-11.1) Neutrophils (%) (Auto) 76.5 % (39.4-72.5) Lymphocytes (%) (Auto) 17.0 % (17.6-49.6) Monocytes (%) (Auto) 6.0 % (4.1-12.4) Eosinophils (%) (Auto) 0.2 % (0.4-6.7) Basophils (%) (Auto) 0.3 % (0.3-1.4) Nucleated RBC Relative Count (auto) 0.0 /100WBC Neutrophils # (Auto) 7.1 K/uL (2.0-7.4) Lymphocytes # (Auto) 1.6 K/uL (1.3-3.6) Monocytes # (Auto) 0.6 K/uL (0.3-1.0) Eosinophils # (Auto) 0.0 K/uL (0.0-0.5) Basophils # (Auto) 0.0 K/uL (0.0-0.1) Nucleated RBC Absolute Count (auto) 0.00 K/uL Sodium Level 139 mmol/L (137-145) Potassium Level 4.0 mmol/L (3.5-5.0) Chloride Level 105 mmol/L (98-107) Carbon Dioxide Level 22 mmol/L (22-31) Blood Urea Nitrogen 17 mg/dl (7-18) Creatinine 0.90 mg/dl (0.52-1.04) Glomerular Filtration Rate Calc > 60.0 Random Glucose 89 mg/dl (75-110) Calcium Level 9.2 mg/dl (8.4-10.2) Total Bilirubin 0.3 mg/dl (0.2-1.3) Aspartate Amino Transf (AST/SGOT) 24 U/L (0-35) Alanine Aminotransferase (ALT/SGPT) 12 U/L (0-56) Alkaline Phosphatase 85 U/L (0-126) C-Reactive Protein 0.5 mg/dl (<1.0) Total Protein 8.3 g/dl (6.3-8.2) Albumin 4.4 g/dl (3.5-5.0) Amylase Level 86 U/L (0-110) Lipase 144 U/L (23-300) Chemistry Test 03/17/18 13:52 03/17/18 13:54 Urine Color Yellow Urine Clarity Slightly-cloudy Urine pH 5.0 pH (4.8-9.5) Urine Specific [place] 1.031 Urine Protein 30 mg/dL (NEGATIVE) Urine Glucose (UA) Negative mg/dL (NEGATIVE) Urine Ketones Trace mg/dL (NEGATIVE) Urine Blood Negative (NEGATIVE) Urine Nitrite Negative (NEGATIVE) Urine Bilirubin Negative (NEGATIVE) Urine Urobilinogen Negative mg/dL (0.2-1.9) Urine Leukocyte Esterase Trace (NEGATIVE) Urine RBC None /HPF (0-2/HPF) Urine WBC 5 /HPF (0-5/HPF) Urine Squamous Epithelial Cells Many /LPF (</=FEW) Urine Bacteria Few /HPF (NONE-FEW) Urine Hyaline Casts Few /LPF (NONE-FEW) Urine Mucus Few /HPF (NONE-FEW) White Blood Count 9.3 k/uL (4.5-11.0) Red Blood Count 5.25 M/uL (4.17-5.56) Hemoglobin 17.5 g/dL (12.0-16.0) Hematocrit 51.0 % (34.0-47.0) Mean Corpuscular Volume 97.2 fL (80.0-96.0) Mean Corpuscular Hemoglobin 33.3 pg (26.0-33.0) Mean Corpuscular Hemoglobin Concent 34.2 g/dL (32.0-36.0) Red Cell Distribution Width 12.4 % (11.5-14.5) Platelet Count 380 K/uL (150-450) Mean Platelet Volume 7.7 fL (7.2-11.1) Neutrophils (%) (Auto) 76.5 % (39.4-72.5) Lymphocytes (%) (Auto) 17.0 % (17.6-49.6) Monocytes (%) (Auto) 6.0 % (4.1-12.4) Eosinophils (%) (Auto) 0.2 % (0.4-6.7) Basophils (%) (Auto) 0.3 % (0.3-1.4) Nucleated RBC Relative Count (auto) 0.0 /100WBC Neutrophils # (Auto) 7.1 K/uL (2.0-7.4) Lymphocytes # (Auto) 1.6 K/uL (1.3-3.6) Monocytes # (Auto) 0.6 K/uL (0.3-1.0) Eosinophils # (Auto) 0.0 K/uL (0.0-0.5) Basophils # (Auto) 0.0 K/uL (0.0-0.1) Nucleated RBC Absolute Count (auto) 0.00 K/uL Glomerular Filtration Rate Calc > 60.0 Calcium Level 9.2 mg/dl (8.4-10.2) Total Bilirubin 0.3 mg/dl (0.2-1.3) Aspartate Amino Transf (AST/SGOT) 24 U/L (0-35) Alanine Aminotransferase (ALT/SGPT) 12 U/L (0-56) Alkaline Phosphatase 85 U/L (0-126) C-Reactive Protein 0.5 mg/dl (<1.0) Total Protein 8.3 g/dl (6.3-8.2) Albumin 4.4 g/dl (3.5-5.0) Amylase Level 86 U/L (0-110) Lipase 144 U/L (23-300) Urinalysis Test 03/17/18 13:52 Urine Color Yellow Urine Clarity Slightly-cloudy Urine pH 5.0 pH (4.8-9.5) Urine Specific [place] 1.031 Urine Protein 30 mg/dL (NEGATIVE) Urine Glucose (UA) Negative mg/dL (NEGATIVE) Urine Ketones Trace mg/dL (NEGATIVE) Urine Blood Negative (NEGATIVE) Urine Nitrite Negative (NEGATIVE) Urine Bilirubin Negative (NEGATIVE) Urine Urobilinogen Negative mg/dL (0.2-1.9) Urine Leukocyte Esterase Trace (NEGATIVE) Urine RBC None /HPF (0-2/HPF) Urine WBC 5 /HPF (0-5/HPF) Urine Squamous Epithelial Cells Many /LPF (</=FEW) Urine Bacteria Few /HPF (NONE-FEW) Urine Hyaline Casts Few /LPF (NONE-FEW) Urine Mucus Few /HPF (NONE-FEW) EKG/Imaging Imaging CT ABDOMEN PELVIS W/ CON HISTORY: Right lower quadrant abdominal pain. TECHNIQUE: CT abdomen and pelvis with intravenous contrast. One of the following dose optimization techniques was utilized in the performance of this exam: Automated exposure control; adjustment of the mA and/or kV according to the patient's size; or use of an iterative reconstruction technique. Specific details can be referenced in the facility's radiology CT exam operational policy. CONTRAST: 75 mL Isovue-370. COMPARISON: CT dated December 17, 2017. FINDINGS: Visualized lung bases: Small hiatal hernia. Otherwise negative. Hepatobiliary: Gallbladder surgically absent. Otherwise negative. Spleen: Negative. Adrenals: Negative. Pancreas: Negative. Kidneys/: Negative. GI: Minimal descending colon diverticulosis without evidence for diverticulitis. Postsurgical changes within the stomach without visualized complication. Otherwise negative. Appendix is unremarkable. Vessels/spaces/nodes: Note is made of a ventriculoperitoneal shunt catheter which terminates in the right hemipelvis. Trace free fluid. Surgical clips within the retroperitoneum. No visualized lymphadenopathy. No free air. Bones/soft tissues: Multiple small fat-containing ventral abdominal wall hernias at and superior to the umbilicus. IMPRESSION: 1. No acute findings. Appendix is unremarkable. 2. Incidental/chronic findings, as above. Report Dictated By: Cash Pedersen MD at 03/17/2018 2:37 PM Report E-Signed By: Cash Pedersen MD at 03/17/2018 2:44 PM ED Course/Re-evaluation ED Course Patient was admitted to exam room, history and physical were obtained. Differential diagnoses were considered. On examination lungs are clear, heart is regular, abdomen is soft and tender in the right lower quadrant. Patient states she does have a history of abdominal pain. She was told once that she had Crohn's disease. She denies having any bleeding in her stool or any diarrhea. Patient states she just has this sharp pain in the right lower quadrant which she's had for 3 weeks. A CBC, CMP, urinalysis, CRP were done. The CRP was negative, the remainder the labs were unremarkable. Urinalysis did show 5 white blood cells per high-power field, urine, however she did have significant amounts of squamous epithelial cells. I believe is likely where the white blood cells had come from. We will go ahead and culture the urine. Patient did receive 4 mg of morphine and 4 mg Zofran. Patient states she had no improvement in her discomfort. A CT scan of abdomen and pelvis was done which showed no acute findings. I do have some concerns that with patient being very vocal about her pain and unable sit still due to her pain that there could be some drug-seeking behavior especially with a normal labs and the normal CT scan. I did discuss the findings with the patient. We will go ahead and give her a limited supply of pain medication, hydrocodone/acetaminophen 5/325 #6. I would like her to follow- up with one of the general surgeons this next week, either Dr. Gramajo or Dr. Vanegas. She is to call to make an appointment. It is my thought that she likely needs to have a colonoscopy. I discussed this with the patient who verbalized understanding and agreement with plan. Decision to Disposition Date: Mar 17, 2018 Decision to Disposition Time: 15:06 Depart Departure Latest Vital Signs Vital Signs Date Time Temp Pulse Resp B/P (MAP) Pulse Ox O2 Delivery O2 Flow Rate FiO2 03/17/18 13:49 99.0 99 20 177/99 92 Room Air Impression: Primary Impression: Abdominal pain Condition: Improved Disposition: HOME OR SELF-CARE Referrals: HANNAH VANEGAS JOHN A MD New Scripts Hydrocodone Bit/Acetaminophen (HYDROCODON-ACETAMINOPHEN 5-325) 1 Each Tablet 1 EACH PO Q4-6H PRN for PAIN, #6 TAB Prov: BRIDGETT AGUIRRE 03/17/18 Prednisone (PREDNISONE) 20 Mg Tablet 40 MG PO DAILY, #10 TAB Prov: BRIDGETT AGUIRRE 03/17/18 Patient Instructions: Abdominal Pain (ED) Additional Instructions: Increase fluid intake. Get plenty of rest. Limit activity by pain. Continue with normal diet. Follow up with Dr. Gramajo or Dr. Vanegas for evaluation of the abdominal pain and likely colonoscopy. We will use a steroid due to history of Crohn's disease. Return to the ER if condition worsens. Problem Qualifiers Primary Impression: Abdominal pain Abdominal location: right lower quadrant Qualified Codes: R10.31 - Right lower quadrant pain BRIDGETT AGUIRRE Mar 17, 2018 14:00
[2018-03-17] MEDS ORDERED: NS(*) 0.9% 1000 ML BAG 1,000 ML IV ONE (14:01)
[2018-03-17] MEDS ORDERED: ONDANSETRON 4 MG/2 ML VIAL IVP ONE (14:05)
[2018-03-17] MEDS ORDERED: MORPHINE 2 MG/ML SYR IVP ONE (14:05)
[2018-03-17 14:16] LABS: PLATELET COUNT, AUTOMATED 380 K/uL (150-450)
[2018-03-17] MEDS ORDERED: IOPAMIDOL 76% 75 ML INFUS BTL 75 ML ONE (14:21)
--- NOTE | 2018-03-17 14:48 | RADIOLOGY IMAGING REPORT ---
FACILITY: [facility] [place] PATIENT NAME: Yara Landeros : 1970 MR: [id number] V: [id number] EXAM DATE: ORDERING PHYSICIAN: BRIDGETT AGUIRRE TECHNOLOGIST: [place] [facility] [place] Patient: Yara Landeros : 1970 Visit/Account:[id number] Date of Sevice: 03/17/2018 CT ABDOMEN PELVIS W/ CON HISTORY: Right lower quadrant abdominal pain. TECHNIQUE: CT abdomen and pelvis with intravenous contrast. One of the following dose optimization techniques was utilized in the performance of this exam: Autom ated exposure control; adjustment of the mA and/or kV according to the patient's size; or use of an i terative reconstruction technique. Specific details can be referenced in the facility's radiology C T exam operational policy. CONTRAST: 75 mL Isovue-370. COMPARISON: CT dated December 17, 2017. FINDINGS: Visualized lung bases: Small hiatal hernia. Otherwise negative. Hepatobiliary: Gallbladder surgically absent. Otherwise negative. Spleen: Negative. Adrenals: Negative. Pancreas: Negative. Kidneys/: Negative. GI: Minimal descending colon diverticulosis without evidence for diverticulitis. Postsurgical change s within the stomach without visualized complication. Otherwise negative. Appendix is unremarkable. Vessels/spaces/nodes: Note is made of a ventriculoperitoneal shunt catheter which terminates in the right hemipelvis. Trace free fluid. Surgical clips within the retroperitoneum. No visualized lymphad enopathy. No free air. Bones/soft tissues: Multiple small fat-containing ventral abdominal wall hernias at and superior to the umbilicus. IMPRESSION: 1. No acute findings. Appendix is unremarkable. 2. Incidental/chronic findings, as above. Report Dictated By: Cash Pedersen MD at 03/17/2018 2:37 PM Report E-Signed By: Cash Pedersen MD at 03/17/2018 2:44 PM WSN:[id number]
[2018-03-17] MEDS ORDERED: PRED20TA6 PO (15:03)
[2018-03-17] MEDS ORDERED: HYDR-385 PO (15:03)
== END 2018-03-17 15:15 | disposition home or self-care (01) ==
LOC: ER 13:47
DX: R10.31 Right lower quadrant pain (principal)
CPT/HCPCS: 74177; 81001; 82150; 83690; 85025; 86140; 96361; 96374; 96375; 99284; J2270; J2405; J7030; Q9967; 82040; 82247; 82310; 82374; 82435; 82565; 82947; 84075; 84132; 84155; 84295; 84450; 84460; 84520

== ENCOUNTER → 2018-05-01 | Outpatient (CLI) | payer OTHER ==
[~2018-05-01] MED LIST changes: +HYDR-385 PO; +IOPAMIDOL 61% 75 ML INFUS BTL 75 ML ONE; +PRED20TA6 PO
--- NOTE | 2018-05-01 14:58 | RADIOLOGY IMAGING REPORT ---
[place] [facility] [place] NAME: Yara Landeros : 1970 MR: [id number] V: [id number] EXAM DATE: ORDERING PHYSICIAN: JIM SOARES TECHNOLOGIST: Location: [facility] [place] Patient: Yara Landeros : 1970 Visit/Account:[id number] Date of Sevice: 05/01/2018 CT ABDOMEN PELVIS W/ CON HISTORY: Abdominal pain. Constipation. TECHNIQUE: Axial images were obtained through the abdomen and pelvis with intravenous contrast . One of the following dose optimization techniques was utilized in the performance of this exam: automate d exposure control; adjustment of the mA and/or kv according to patient size; or use of iterative rec onstruction technique. Specific details can be referenced in the facility's radiology CT exam operati onal policy. CONTRAST: 75 mL of Isovue-300 COMPARISON: CT abdomen/pelvis 03/17/2018. FINDINGS: Visualized lung bases: Negative. Hepatobiliary: Cholecystectomy. Spleen: Negative. Adrenals: Negative. Pancreas: Negative. Kidneys/ureters/bladder: Negative. Bowel/peritoneum/mesentery: Postoperative changes from gastric sleeve procedure. Small hiatal herni a. Normal appendix. Catheter tubing noted in the peritoneal space. Lymph nodes: Negative. Pelvic genitourinary: Negative. Bones/body wall: Several ventral abdominal wall hernias containing omentum. Scattered degenerative changes within the spine and SI joints. Other findings: None significant IMPRESSION: 1. No concerning mass, lymphadenopathy or acute inflammatory process. Report Dictated By: Mekhi Henriquez MD at 05/01/2018 2:47 PM Report E-Signed By: Mekhi Henriquez MD at 05/01/2018 2:54 PM WSN:[email or web address]
== END ==
LOC: CT 00:32
PROVIDERS: ATTEND Physician Assistant
DX: R10.9 Unspecified abdominal pain (principal)
CPT/HCPCS: 74177; Q9967

== ENCOUNTER → 2018-07-19 | Outpatient (REF) | payer OTHER ==
[~2018-07-19] MED LIST changes: -IOPAMIDOL 61% 75 ML INFUS BTL 75 ML ONE
[2018-07-19 13:20] LABS: PLATELET COUNT, AUTOMATED 340 K/uL (150-450)
== END ==
LOC: ZZSTITCHES 13:04
PROVIDERS: ATTEND Physician Assistant
DX: R07.89 Other chest pain (principal); R51 Headache
CPT/HCPCS: 82040; 82247; 82310; 82374; 82435; 82565; 82947; 84075; 84132; 84155; 84295; 84450; 84460; 84484; 84520; 85025